=== PATIENT | male | born 1950 | race Caucasian/White ===

== ENCOUNTER 2017-12-30 11:53 | Outpatient (RCR) | payer MEDICARE ==
[~2017-12-30] VITALS: Ht 168.9 cm; Wt 90.1 kg
[~2017-12-30 11:53] MED LIST: AMLO-104 PO; BIS10S PR; DIA5 PO; DOC100 PO; ENO40I SQ; FLAX100042 PO; GUALA600 PO; HYDR1AMP IJ; MOM PO; MULT1CAP41 PO; OXY10 PO; OXYC-689 PO; OXYC-944 PO; OXYC30TA3 PO; OXYIR PO; PEN250 PO; PRE5 PO; PRED5TAB37 PO; RANI150C14 PO; TACR1CAP15 PO; TACR5CAP13 PO; TUM500 PO; VANC1PLA10 IVPB; VITA-365 PO; VITA100C13 PO; WARF-12 PO; WARF10TA29 PO; ZOL5 PO; [UNRECOGNIZED DRUG - CODE] PO
[2017-12-30 12:01] VITALS: BP 153/95
[2017-12-30 13:00] LABS: PLATELET COUNT, AUTOMATED 268 K/uL (150-450)
--- NOTE | 2017-12-31 20:42 | ONCOLOGY CONSULTATION ---
EVENT DATE: December 30, 2017 CHIEF COMPLAINT REASON FOR VISIT Mr. Marte is a 67-year-old gentleman, with a history of hepatitis C status post liver transplantation, that presents with erythrocytosis. HISTORY OF PRESENT ILLNESS Mr. Marte presents for initial consultation. He has a history of liver transplantation many years ago due to hepatitis C. He believes he contracted this virus from a blood transfusion in the or . He had the transplant and then subsequently it was re-infected with hepatitis C, likely from disease that was present elsewhere in his body. He has received Harvoni and by report he is in complete remission thankfully. Review of his labs over the last year, however, does show a significantly elevated hematocrit, with no other major findings on his CBC. This does raise a concern for polycythemia vera or secondary erythrocytosis. He is a smoker and could have more significant lung disease living in altitude that is leading to this worsening of his erythrocytosis. Polycythemia vera is on the differential diagnosis as well. The patient is overall doing okay. He does note fatigue. He recently had his teeth pulled. No history of blood clots or heart attack thankfully. PAST MEDICAL/SURGICAL HISTORY Includes, but is not limited to: 1. Hepatitis C. 2. Liver transplantation. 3. Erythrocytosis. SOCIAL HISTORY Patient has presented by himself. FAMILY HISTORY Noncontributory. MEDICATIONS He did not bring his medication list and does not recall all of his medications , so it is not up to date in our system at this time. REVIEW OF SYSTEMS CONSTITUTIONAL: No fevers, chills, weight change. HEENT: No major headache, vision changes, hearing changes. CARDIOVASCULAR: No chest pain, dyspnea on exertion or edema. No history of heart attack. RESPIRATORY: No shortness of breath, wheeze, cough. GASTROINTESTINAL: No nausea, vomiting. GENITOURINARY: No dysuria or hematuria. MUSCULOSKELETAL: No significant weakness or joint pain. PSYCHIATRIC: No anxiety or depression. ENDOCRINE: No heat or cold intolerance. The remainder of the 14-point review of systems is otherwise negative. PHYSICAL EXAMINATION VITAL SIGNS: Blood pressure 153/95, pulse 99, respiratory rate 16, temperature 97.7 Fahrenheit, oxygen saturation 92% on room air. Height 66.5 inches, weight 90.1 kg. Pain 0/10, fatigue 0/10. GENERAL: In stable condition, resting comfortably in the chair. SKIN: Mild facial plethora. HEENT: Poor dentition. CARDIOVASCULAR: Borderline tachycardia. RESPIRATORY: No respiratory distress. ABDOMEN: Soft, nontender with no organomegaly. He does have a surgical scar. I do palpate his liver edge, but it is nontender. EXTREMITIES: No clubbing, cyanosis or edema. SKIN: No concerning rashes. Remainder of physical exam unremarkable. IMPRESSION AND PLAN Mr. Marte is a pleasant 67-year-old liver transplant recipient, with a history of hepatitis C, currently in remission after Harvoni, that presents with the followin. Erythrocytosis. This could be both primary polycythemia vera or secondary erythrocytosis. We plan to check the labs to rule this out. Regardless, he would benefit from a phlebotomy to reduce his hematocrit below 50%. We will arrange for this today. We will check iron studies given his liver history. I reviewed his ultrasound, which does show either fatty liver versus an infiltrative liver from high iron versus or both. Thankfully, no signs of liver rejection. 2. Tobacco use with erythrocytosis raises concern for emphysema or chronic obstructive pulmonary disease. Recommend follow-up with his primary care provider and perhaps consideration of pulmonary function tests periodically. 3. We will get the above studies arranged for phlebotomy and then see him in followup. If he does not have polycythemia vera I think he will need phlebotomies a couple of times a year. If he does have polycythemia it will likely increase the frequency. I answered all of his questions today. Billing: New patient level 3. Total time 30 minutes, counseling time 20. MTDD
== END 2018-03-27 ==
LOC: ONC 11:53
PROVIDERS: ATTEND Internal Medicine Medical Oncology
DX: D75.1 Secondary polycythemia (principal); B19.20 Unspecified viral hepatitis C without hepatic coma; F17.210 Nicotine dependence, cigarettes, uncomplicated
CPT/HCPCS: 36415; 81270; 81403; 82728; 83540; 83550; 83615; 85025; 99195; G0463; 82040; 82247; 82310; 82374; 82435; 82565; 82947; 84075; 84132; 84155; 84295; 84450; 84460; 84520; 99202

== ENCOUNTER 2018-04-07 13:00 | Outpatient (RCR) | payer MEDICARE ==
[2018-04-07 13:10] VITALS: BP 155/91
--- NOTE | 2018-04-08 18:53 | ONCOLOGY FOLLOW UP NOTE ---
EVENT DATE: April 07, 2018 CHIEF COMPLAINT/REASON FOR VISIT Mr. Marte is a pleasant 67-year-old gentleman with a history of hepatitis C status post liver transplantation that presented with secondary erythrocytosis. HISTORY OF PRESENT ILLNESS Mr. Marte returns. He has a history of liver transplantation many years ago for hepatitis C, which he believes he contracted from a blood transfusion in the . He than had transplant and subsequently was re-infected with hepatitis C likely from disease that was present dormant elsewhere in his body. He has since received Harvoni and is in complete remission today. That was a very difficult treatment for him. He has a significantly elevated hematocrit and he had one phlebotomy in December 2017. He felt much better after this, but that lasted less than a week. I think that the reason for this is that he still has erythrocytosis and we will need to treat him more frequently. We will arrange for a phlebotomy today, if his labs which are pending today return with hematocrit greater than 50. I anticipate they will be based on his symptoms. Overall he doing okay. No new issues. PAST MEDICAL/SURGICAL HISTORY Includes, but is not limited to: 1. Hepatitis C. 2. Liver transplantation. 3. Erythrocytosis. SOCIAL HISTORY Patient has presented by himself. FAMILY HISTORY Noncontributory. REVIEW OF SYSTEMS CONSTITUTIONAL: No fevers, chills, weight change. HEENT: No major headache, vision changes, hearing changes. CARDIOVASCULAR: No chest pain, dyspnea on exertion or edema. No history of heart attack. RESPIRATORY: No shortness of breath, wheeze, cough. GASTROINTESTINAL: No nausea, vomiting. GENITOURINARY: No dysuria or hematuria. MUSCULOSKELETAL: No significant weakness or joint pain. PSYCHIATRIC: No anxiety or depression. ENDOCRINE: No heat or cold intolerance. The remainder of the 14-point review of systems is otherwise negative. PHYSICAL EXAMINATION VITAL SIGNS: Blood pressure 155/91, pulse 108, respiratory rate 16, temperature 98.6 Fahrenheit, oxygen saturation 92% on room air. Weight 93.8 kg. Pain 0/10, fatigue 0/10. GENERAL: In stable condition, resting comfortably in the chair. HEENT: Normocephalic, atraumatic. EXTREMITIES: No clubbing, cyanosis or edema. PSYCHIATRIC: Normal mood and affect. Remainder of physical exam deferred today due to amount of time spent in counseling and coordination of care. IMPRESSION AND PLAN Mr. Marte is a pleasant 67-year-old liver transplant recipient, with a history of hepatitis C, currently in remission with Harvtalia here for followup. 1. Secondary erythrocytosis. His JAK2 and Exon 11 studies were negative. We will send CLAR with his next lab draw. I think it is important to control his hematocrit for multiple reasons including his liver transplant, as well as to reduce the risk of heart attack and stroke. 2. Tobacco use which raises concern for emphysema and chronic obstructive pulmonary disease. Followup with his PCP. 3. We will likely need periodic phlebotomies every few months. We will get them if his hematocrit is ever 50% or higher. I answered all of his questions today. Billing: Return visit level 3. Total time 20 minutes, counseling time 15. MTDD
== END 2018-07-02 ==
LOC: ONC 13:00
PROVIDERS: ATTEND Internal Medicine Medical Oncology
DX: D75.1 Secondary polycythemia (principal); B19.20 Unspecified viral hepatitis C without hepatic coma; F17.210 Nicotine dependence, cigarettes, uncomplicated; Z94.4 Liver transplant status
CPT/HCPCS: 99212

== ENCOUNTER → 2018-06-11 | Outpatient (CLI) | payer MEDICARE ==
--- NOTE | 2018-06-11 15:06 | EKG ---
FACILITY: [facility] - [place] PATIENT NAME: GENARO FAN : [id number] MR: [id number] V: [id number] EXAM DATE: ORDERING PHYSICIAN: IGNACIA CROSS TECHNOLOGIST: ERIC Test Reason : TACHCARDIA Blood Pressure : / mmHG Vent. Rate : 081 BPM Atrial Rate : 081 BPM P-R Int : 240 ms QRS Dur : 104 ms QT Int : 382 ms P-R-T Axes : 059 093 -60 degrees QTc Int : 443 ms Sinus rhythm with 1st degree AV block with premature atrial complexes Rightward axis Possible Anterior infarct , age undetermined ST and T wave abnormality, consider inferolateral ischemia Abnormal ECG No previous ECGs available Referred By: AMERICA Confirmed By:
--- NOTE | 2018-06-11 15:15 | RADIOLOGY IMAGING REPORT ---
FACILITY: [facility] PATIENT NAME: Capo Marte : 1950 MR: [id number] V: [id number] EXAM DATE: ORDERING PHYSICIAN: IGNACIA CROSS TECHNOLOGIST: Location: [facility] Patient: Capo Marte : 1950 Visit/Account:[id number] Date of Sevice: 06/11/2018 Chest 2 views: HISTORY: Patient states right lung not fully expanding. COMPARISON: 04/19/2015 FINDINGS: Frontal and lateral chest: Cardiomediastinal silhouette is within normal limits. There is no focal infiltrate or evidence of significant atelectasis. There is no pleural effusion or pneumoth orax. Pulmonary vasculature is normal. Scarring is present in the left mid to lower lung adjacent to old rib fractures, appearance is unchan ged compared to the prior study. Interstitial markings are mildly prominent also stable. Atherosclerotic changes are present in the aorta. Minimal degenerative changes present in the thoracic spine. IMPRESSION: Chronic changes in the lungs, stable. There is no evidence of acute cardiopulmonary abnormality. Report Dictated By: Rima Capps MD at 06/11/2018 3:09 PM Report E-Signed By: Rima Capps MD at 06/11/2018 3:11 PM WSN:[email or web address]
== END ==
LOC: RAD 14:02
PROVIDERS: ATTEND Family Medicine
DX: I70.0 Atherosclerosis of aorta (principal); R91.8 Other nonspecific abnormal finding of lung field; R94.31 Abnormal electrocardiogram [ECG] [EKG]
CPT/HCPCS: 71046; 93005

== ENCOUNTER → 2018-06-27 | Outpatient (CLI) | payer MEDICARE ==
--- NOTE | 2018-06-30 14:33 | RT STRESS TEST REPORT ---
FACILITY: [facility] - [place] PATIENT NAME: GENARO FAN : [id number] MR: [id number] V: [id number] EXAM DATE: ORDERING PHYSICIAN: SUSU MORAN TECHNOLOGIST: Amilcar Acquisition Time: 2018-06-27 10:20:17 Total Exercise Time: 00:03:08 Test Indications: Tachy Medications: losartan tacholimus? Protocol: YIN Max HR: 130 BPM 86% of Pred: 150 BPM Max BP: 156/079 mmHG Max Work Load: 4.6 METS SEE STRESS ECHO REPORT. Confirmed by ROXY ATKINSON ([id number]), editor news LETY IRELAND ([id number]) on 06/30/2018 2:32:21 PM Referred By: Susu Moran Overread By: ROXY ATKINSON
== END ==
LOC: RESP 01:58
PROVIDERS: ATTEND Family Medicine
DX: I49.3 Ventricular premature depolarization (principal)
CPT/HCPCS: 93017; 93325; 93350

== ENCOUNTER 2018-07-07 10:25 | Outpatient (RCR) | payer MEDICARE ==
[2018-07-07 10:40] VITALS: BP 133/85
--- NOTE | 2018-07-08 11:28 | ONCOLOGY FOLLOW UP NOTE ---
EVENT DATE: July 07, 2018 CHIEF COMPLAINT/REASON FOR VISIT Mr. Marte is a pleasant 68-year-old gentleman with a history of hepatitis C status post liver transplantation that I am following for secondary erythrocytosis. HISTORY OF PRESENT ILLNESS Mr. Marte returns. He has a history of liver transplantation many years ago for hep C, which he believes he contracted from a blood transfusion in the . He then had transplant and subsequently was reinfected with hep C and treated with Harvoni. He is in complete remission again, although he did not tolerate Harvoni very well. He has a significantly elevated hematocrit and is getting phlebotomy every three months to keep his hematocrit less than 50. His testing for polycythemia vera was negative including JAK2 and Exon 11 mutation. We did not get a CALR test. Overall he is doing well. His therapy would no change, and we will continue phlebotomies every three months. PAST MEDICAL/SURGICAL HISTORY Includes, but is not limited to: 1. Hepatitis C. 2. Liver transplantation. 3. Erythrocytosis. SOCIAL HISTORY Patient has presented by himself. FAMILY HISTORY Noncontributory. REVIEW OF SYSTEMS CONSTITUTIONAL: No fevers, chills, weight change. HEENT: No major headache, vision changes, hearing changes. CARDIOVASCULAR: No chest pain, dyspnea on exertion or edema. No history of heart attack. RESPIRATORY: No shortness of breath, wheeze, cough. GASTROINTESTINAL: No nausea, vomiting. GENITOURINARY: No dysuria or hematuria. MUSCULOSKELETAL: No significant weakness or joint pain. PSYCHIATRIC: No anxiety or depression. ENDOCRINE: No heat or cold intolerance. The remainder of the 14-point review of systems is otherwise negative. PHYSICAL EXAMINATION VITAL SIGNS: Blood pressure 133/85, pulse 74, respiratory rate 16, temperature 97.5 Fahrenheit, oxygen saturation 94% on room air. Weight 901. kg. Pain 2/10 , fatigue 0/10. GENERAL: Stable condition, resting comfortably in the chair. HEENT: Normocephalic, atraumatic. CARDIOVASCULAR: Regular rate and rhythm. LUNGS: Clear. EXTREMITIES: No clubbing, cyanosis or edema. PSYCHIATRIC: Normal mood and affect. Remainder of physical exam otherwise unremarkable. IMPRESSION AND PLAN Mr. Marte is a pleasant 68-year-old liver transplant recipient, with a history of hepatitis C, currently in remission after Harvoni here for followup. 1. Secondary erythrocytosis. Plan to get phlebotomies every three months. 2. Tobacco use history with concern for emphysema/chronic obstructive pulmonary disease. Followup with primary care provider. 3. History of liver transplantation and hepatitis C under control. I answered all of his questions today. Billing: Return visit level 3. Total time 20 minutes, counseling time 15. MTDD
== END 2018-07-25 11:04 | disposition home or self-care (01) ==
LOC: ONC 10:25
PROVIDERS: ATTEND Internal Medicine
DX: D75.1 Secondary polycythemia (principal); B19.20 Unspecified viral hepatitis C without hepatic coma; F17.210 Nicotine dependence, cigarettes, uncomplicated; Z94.4 Liver transplant status
CPT/HCPCS: 99212

== ENCOUNTER 2019-01-12 14:42 | Outpatient (RCR) | payer MEDICARE | END 2019-01-13 12:02 | disposition home or self-care (01) | LOC: ONC 14:42 | PROVIDERS: ATTEND Internal Medicine | DX: D58.2 Other hemoglobinopathies (principal); D75.1 Secondary polycythemia ==

== ENCOUNTER 2019-01-23 13:16 | Outpatient (RCR) | payer MEDICARE | END 2019-01-26 12:15 | disposition home or self-care (01) | LOC: ONC 13:16 | PROVIDERS: ATTEND Internal Medicine | DX: D58.2 Other hemoglobinopathies (principal); D75.1 Secondary polycythemia ==

== ENCOUNTER → 2019-01-28 | Outpatient (CLI) | payer MEDICARE ==
[~2019-01-28] MED LIST changes: +IOPAMIDOL 76% 100 ML INFUS BTL 100 ML ONE
--- NOTE | 2019-01-28 15:11 | RADIOLOGY IMAGING REPORT ---
FACILITY: [facility] PATIENT NAME: Capo Marte : 1950 MR: [id number] V: [id number] EXAM DATE: ORDERING PHYSICIAN: IGNACIA CROSS TECHNOLOGIST: Location: [facility] Patient: Capo Marte : 1950 Visit/Account:[id number] Date of Sevice: 01/28/2019 CT neck with and without contrast Comparison: None Additional pertinent history: Right tonsillar enlargement with right cervical lymphadenopathy. Hist ory of tobacco use TECHNIQUE: Multiple axial images were obtained from the mid portion of the brain through the superio r mediastinum with and without IV contrast. Coronal and sagittal reformatted images were obtained of f the axial source data. One of the following dose optimization techniques was utilized in the perfo rmance of this exam: Automated exposure control; adjustment of the mA and/or kV according to the odalys ent's size; or use of an iterative reconstruction technique. Specific details can be referenced in the facility's radiology CT exam operational policy. CONTRAST: 75 mL of Isovue-370 FINDINGS: Visualized portions of the brain parenchyma:Negative Parotid glands/submandibular glands/thyroid: Partial fatty replacement of the right parotid gland wi thout a focal lesion noted. The submandibular glands and thyroid gland have a normal appearance. Th e left parotid gland has a normal appearance. Orbits: Negative Paranasal sinuses: Negative Parapharyngeal spaces: Negative Nasopharynx/oropharynx/hypopharynx: Negative Tonsillar pillars: Negative, specifically no evidence of a right tonsillar mass noted on today's exa m. Oral tongue/tongue base: Negative True and false cords: Negative Lymph node assessment:Negative Surrounding soft tissues: Negative Vasculature: Calcified and noncalcified atherosclerotic plaque involving the cervical internal carot id arteries with findings concerning for a rather high-grade stenoses bilaterally at the origins of t he internal carotid arteries. Lung apices: Mild background emphysematous changes involving both lung apices. Osseous structures: Spondylitic change involving the cervical spine. IMPRESSION: 1. No acute process involving the neck. 2. Specifically no evidence of right tonsillar mass or right sided cervical lymphadenopathy. Report Dictated By: Chidi Monte MD at 01/28/2019 2:55 PM Report E-Signed By: Chidi Monte MD at 01/28/2019 3:05 PM WSN:[id number]
== END ==
LOC: CT 01:27
PROVIDERS: ATTEND Family Medicine
DX: M47.892 Other spondylosis, cervical region (principal); I65.23 Occlusion and stenosis of bilateral carotid arteries; R91.8 Other nonspecific abnormal finding of lung field
CPT/HCPCS: 70492; Q9967

== ENCOUNTER → 2019-02-11 | Outpatient (CLI) | payer MEDICARE ==
[~2019-02-11] MED LIST changes: -IOPAMIDOL 76% 100 ML INFUS BTL 100 ML ONE
--- NOTE | 2019-02-11 17:10 | RADIOLOGY IMAGING REPORT ---
FACILITY: [facility] - [place] PATIENT NAME: Capo Marte : 1950 MR: [id number] V: [id number] EXAM DATE: ORDERING PHYSICIAN: IGNACIA CROSS TECHNOLOGIST: Location: Patient: Capo Marte : 1950 Visit/Account:[id number] Date of Sevice: 02/11/2019 CAROTID HISTORY: Carotid stenosis, lightheadedness COMPARISON: February 15, 2014 FINDINGS: Grayscale, duplex and color Doppler interrogation of the extracranial carotid and vertebral arteries was performed bilateral. On the right, peak systolic velocities within the common and internal carotid arteries are 127 and 14 1 cm/sec respectively. There is a small to moderate amount of plaque at the right carotid bulb and a moderate amount of plaque in the proximal right internal carotid artery. Antegrade flow within the common, internal and external carotid arteries as well as vertebral artery. ICA/CCA ratio 3.41. On the left, peak systolic velocities within the common and internal carotid arteries are 67 and 134 cm/sec respectively. Is intimal thickening throughout the left common carotid artery and a small syeda unt of hard and soft plaque left carotid bulb. There is a moderate amount of plaque in the proximal left internal carotid artery. Antegrade flow within the common, internal and external carotid arteri es as well as vertebral artery. ICA/CCA ratio 2.7. IMPRESSION: There is a small to moderate amount plaque right carotid bulb and a moderate amount of plaque in the proximal right internal carotid artery producing a peak systolic velocity of 144 cm/s. This falls wi thin the 50-69% stenosis category range There is intimal thickening throughout the left common carotid artery and a small amount of hard and soft plaque left carotid bulb and a moderate amount of plaque in the proximal left internal carotid a rtery producing a elevated peak systolic velocity 134 cm/s. This also falls within the 50-69% stenos is category range Velocity criteria are extrapolated from diameter data as defined by the Society of Radiologists in Ul trasound Consensus Conference Radiology 2003; 229;340-346 Report Dictated By: Amanda Powell MD at 02/11/2019 5:01 PM Report E-Signed By: Amanda Powell MD at 02/11/2019 5:05 PM WSN:MARIA LUISA
== END ==
LOC: US 02-09 00:14
PROVIDERS: ATTEND Family Medicine
DX: I65.23 Occlusion and stenosis of bilateral carotid arteries (principal)
CPT/HCPCS: 93880

== ENCOUNTER → 2019-02-19 | Outpatient (CLI) | payer MEDICARE ==
[~2019-02-19] MED LIST changes: +LOSA25TA57 PO; +METF-450 PO
--- NOTE | 2019-02-19 14:05 | EKG ---
FACILITY: [facility] PATIENT NAME: GENARO FAN : [id number] MR: [id number] V: [id number] EXAM DATE: ORDERING PHYSICIAN: MARGUERITE OLIVAS TECHNOLOGIST: CHRIS Shah Reason : EKG Blood Pressure : / mmHG Vent. Rate : 085 BPM Atrial Rate : 085 BPM P-R Int : 234 ms QRS Dur : 110 ms QT Int : 376 ms P-R-T Axes : 048 -14 237 degrees QTc Int : 447 ms Sinus rhythm with 1st degree AV block with occasional premature ventricular complexes T wave abnormality, consider inferolateral ischemia Abnormal ECG When compared with ECG of 11-JUN-2018 14:44, premature ventricular complexes are now present premature atrial complexes are no longer present Questionable change in QRS axis T wave inversion less evident in Inferior leads Referred By: BRENDON Confirmed By:
== END ==
LOC: LAB 13:59
PROVIDERS: ATTEND Surgery
DX: Z02.9 Encounter for administrative examinations, unspecified (principal)

== ENCOUNTER 2019-02-23 12:20 | Outpatient (RCR) | payer MEDICARE ==
[2019-02-23 13:00] VITALS: BP 120/78
--- NOTE | 2019-02-24 03:53 | ONCOLOGY FOLLOW UP NOTE ---
EVENT DATE: February 23, 2019 CHIEF COMPLAINT/REASON FOR VISIT Mr. Marte is a pleasant 68-year-old gentleman with a history of hepatitis C, status post liver transplantation, whom I am following for secondary erythrocytosis. HISTORY OF PRESENT ILLNESS Mr. Marte returns. He has a history of liver transplantation approximately 20 years ago for hepatitis C, which he believes he contracted from a blood transfusion in the . He then had transplant and was subsequently reinfected with hepatitis C and treated with Harvoni. He is in complete remission again, although he did not tolerate Harvoni very well. He has an elevated hematocrit, and we are doing phlebotomies every three months. His testing for polycythemia vera was negative, including JAK2 and exon 11. We did not check a CALR mutation test. Overall, he is doing well, although he missed his last phlebotomy and is due for it now. We will renew his orders. His platelet count has been low, and he is due for a colonoscopy due to an abnormal Hemoccult card test. His platelet count has been approximately 70, which I believe is related to his prior liver issues. That said, it has been elevated before, so we will repeat this study and check a peripheral smear to rule out clumping. If his platelet count is less than 75, we will arrange for a transfusion, then move forward with the colonoscopy, which is his most pressing issue. We will need to follow his platelets. PAST MEDICAL/SURGICAL HISTORY Includes, but is not limited to: 1. Hepatitis C. 2. Liver transplantation. 3. Erythrocytosis. SOCIAL HISTORY Patient has presented by himself. FAMILY HISTORY Noncontributory. REVIEW OF SYSTEMS CONSTITUTIONAL: No fevers, chills, weight change. HEENT: No major headache, vision changes, hearing changes. CARDIOVASCULAR: No chest pain, dyspnea on exertion or edema. No history of heart attack. RESPIRATORY: No shortness of breath, wheeze, cough. GASTROINTESTINAL: No nausea, vomiting. GENITOURINARY: No dysuria or hematuria. MUSCULOSKELETAL: No significant weakness or joint pain. PSYCHIATRIC: No anxiety or depression. ENDOCRINE: No heat or cold intolerance. SKIN: No concerning findings or rashes. HEMATOLOGIC: No bruising or bleeding. He had a positive Hemoccult card, but denies any hematemesis or melena. The remainder of the 14-point review of systems is otherwise negative. PHYSICAL EXAMINATION VITAL SIGNS: Blood pressure 120/78, pulse 83, respiratory rate 16, temperature 97.6 Fahrenheit, oxygen saturation 93% on room air. Weight 102 kg. Pain 0/10, fatigue 0/10. GENERAL: Stable condition, resting comfortably in the chair. SKIN: No concerning lesions or rashes. CARDIOVASCULAR: Regular rate and rhythm. LUNGS: Clear. ABDOMEN: Soft, nontender. He does have the transplant. EXTREMITIES: No clubbing, cyanosis or edema. Remainder of exam unremarkable. IMPRESSION/REPORT/PLAN Mr. Marte is a pleasant 68-year-old transplant recipient with a history of hepatitis C, currently in remission after Harvtalia, here for followup. 1. Secondary erythrocytosis. Plan to get phlebotomies approximately every three months, and we will rearrange for this. 2. Tobacco use history with concern for emphysema/chronic obstructive pulmonary disease. 3. History of liver transplantation and hepatitis C, under control. 4. Thrombocytopenia. Unclear etiology. His liver numbers look okay, so I do not know if I can blame the liver; however, that is the most likely etiology. Plan to repeat the testing along with peripheral smear to make sure we do not see any platelet clumping. If his platelets are less than 75, we will arrange for a transfusion prior to colonoscopy. We will follow this closely. He will see us back later in 2019. Answered all of his questions. BILLING Return visit level 4. Total time 30 minutes, counseling time 20. MTDD
[2019-03-23] MEDS ORDERED: LOSA50TA80 PO (11:27)
[2019-03-23] MEDS ORDERED: METF-450 PO (11:27)
== END 2019-04-03 08:57 | disposition home or self-care (01) ==
LOC: ONC 12:20
PROVIDERS: ATTEND Internal Medicine
DX: D75.1 Secondary polycythemia (principal); B19.20 Unspecified viral hepatitis C without hepatic coma; F17.210 Nicotine dependence, cigarettes, uncomplicated; Z94.4 Liver transplant status; D69.6 Thrombocytopenia, unspecified
CPT/HCPCS: 99212

== ENCOUNTER 2019-03-27 00:11 | Observation (INO) | payer MEDICARE, OTHER ==
[~2019-03-27] VITALS: Ht 172.7 cm; Wt 99.1 kg
[2019-03-27] VITALS (11 sets, daily range): BP systolic 91–164; BP diastolic 57–100
[~2019-03-27 00:11] MED LIST changes: +LOSA50TA80 PO
[2019-03-27] MEDS ORDERED: PROPOFOL EMUL(*) 10MG/ML 20 ML 40 ML ONE (08:40)
[2019-03-27] MEDS ORDERED: LIDOCAINE MPF 1% 5 ML VIAL ONE (08:40)
[2019-03-27 09:59] LABS: INR 0.96
[2019-03-27] MEDS ORDERED: LIDOCAINE/SOD BICARB 8.4% SYR ID ONE (10:05)
[2019-03-27] MEDS ORDERED: NORMOSOL R SOLN(*) 1000 ML BAG 1,000 ML IV PRN (10:05)
[2019-03-27] MEDS ORDERED: IOPAMIDOL 76% 150 ML INFUS BTL 150 ML ONE (12:42)
--- NOTE | 2019-03-27 14:53 | NUR ---
1115- PT. RECEIVED FROM THE OR VIA STRETCHER WITH THE SIDERAILS UP. SBAR RECEIVED FROM ANASTASIA REARDON AND DR. MORA. SEE ADMISSION ASSESSMENT. 1130- PT. AWAKE 1147- PT. RETURNED TO ROOM AIR. 1210- DR. OLIVAS AT THE BEDSIDE. 1230- SBAR GIVEN TO MARCO REARDON. 1300- SBAR RECEIVED FROM MARCO REARDON. AND PT. TAKEN TO RADIOLOGY FOR CT SCAN IN WHEELCHAIR. 1316- PT. BACK FROM RADIOLOGY. 1320- PT. TAKEN TO MED/SURG IN WHEELCHAIR. SBAR GIVEN TO ANAMIKA REARDON. SEE DISCHARGE ASSESSMENT.
--- NOTE | 2019-03-27 16:49 | Short(Outpt) Discharge Summary ---
Discharge Summary Reason for Hosp/Final Diag: (1) Positive fecal occult blood test Hospital Course & Plan: pt presented for colonoscopy. he has a mass in right colon. path pending. he completed ct scans and labs for cancer workup. he did not have a ride home. discharge in am. Departure Discharge to: Home Discharge Instructions Home Meds Reported Medications Losartan Potassium (LOSARTAN POTASSIUM) 50 Mg Tablet, 50 MG PO QDAY 03/23/19 Metformin Hcl (METFORMIN HCL) 500 Mg Tablet, 1 TAB PO QDAY, TAB 03/23/19 Discontinued Reported Medications Metformin Hcl (METFORMIN HCL) Unknown Strength Tablet, PO BID, TAB 02/19/19 Losartan Potassium (LOSARTAN POTASSIUM) Unknown Strength Tablet, PO QDAY 02/19/19 Tacrolimus Anhydrous (Prograf) 1 Mg Capsule, 1 MG PO BID, 0 Refills 12/21/08 Guaifenesin (Guaifenesin) 600 Mg Tabcr, 600 MG PO BID PRN for CONGESTION, 0 Refills 12/21/08 Diet: Regular Activity: As Tolerated Special Instructions: we will call you with biopsy results. MARGUERITE OLIVAS March 27, 2019 16:49
--- NOTE | 2019-03-27 17:44 | RADIOLOGY IMAGING REPORT ---
[place] [facility] [place] NAME: Capo Marte : 1950 MR: [id number] V: [id number] EXAM DATE: ORDERING PHYSICIAN: MARGUERITE OLIVAS TECHNOLOGIST: Location: [facility] - [place] Patient: Capo Marte : 1950 Visit/Account:[id number] Date of Sevice: 03/27/2019 CT CHEST ABDOMEN PELVIS W/CON HISTORY: Colon mass, history of liver transplant TECHNIQUE: CT chest, abdomen and pelvis with intravenous contrast. Contiguous helical images was per formed from the lung apices to the symphysis pubis. One of the following dose optimization techniques was utilized in the performance of this exam: Autom ated exposure control; adjustment of the mA and/or kV according to the patient's size; or use of an i terative reconstruction technique. Specific details can be referenced in the facility's radiology C T exam operational policy. CONTRAST: 75 cc of Isovue-370 COMPARISON: None. FINDINGS: CHEST: Heart/vessels: There is significant atherosclerotic calcification of the thoracic aorta. Plaque at t he origin of the right brachycephalic artery causes approximately 60-70% focal narrowing at the origi n. Great vessels are well-opacified. Mediastinum: Negative. Lymph nodes: Small subcentimeter mediastinal lymph nodes are noted not enlarged by size criteria. Lungs/pleura: Paraseptal emphysema at the lung apices is noted. 8 x 5 mm nodule right lower lobe is noted (4/61) Bones/soft tissues: Degenerative changes are noted. ABDOMEN/PELVIS: Hepatobiliary: Patient reportedly has had a liver transplantation. No focal liver lesions are seen. Gallbladder is absent. Spleen: Negative. Adrenals: Negative. Kidneys/: Negative. Pancreas: Negative. GI: There is extensive colonic diverticulosis. There appears to be a subtle circumferential mass in the mid transverse colon extending for 5 cm in length. Please correlate with recent colonoscopy findi ngs. Small subcentimeter mesenteric lymph nodes are noted not obviously pathologic. Vessels/spaces/nodes: Extensive atherosclerotic calcification of the aorta and iliac vessels is note d. Infrarenal abdominal aorta is mildly aneurysmal measures 3.2 cm. 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 Bones/soft tissues: Patient has a left hip arthroplasty. Sclerosis of the right femoral head could i ndicate avascular necrosis without articular collapse. There is bilateral L5 spondylolysis with 6 mm of anterolisthesis of L5 with respect S1. IMPRESSION: 1. Reported history is colon mass. There is circumferential thickening of the mid transverse colon o joan distance of nearly 5 cm presumably the known neoplasm. No evidence for bowel obstruction. Please correlate with colonoscopy results. 2. No definitive metastatic disease. Specifically no liver lesions are seen. 3. Patient reportedly has had prior hepatic transplantation. The liver is grossly unremarkable. 4. 8 x 5 mm nodule right lower lobe which warrants follow-up. 5. Numerous other chronic findings detailed above. Report Dictated By: New Matthews MD at 03/27/2019 5:27 PM Report E-Signed By: New Matthews MD at 03/27/2019 5:40 PM WSN:[id number]
[2019-03-28 03:38] VITALS: BP 138/89
[2019-03-28 07:21] VITALS: BP 145/88
--- NOTE | 2019-03-28 08:21 | NUR ---
Refused metformin as he was told after his CT with contrast not to take it for 3 days
[2019-03-28] MEDS ORDERED: metFORMIN HCL 500 MG TAB PO SCH (09:00)
[2019-03-28] MEDS ORDERED: LOSARTAN POTASSIUM 50 MG TAB PO SCH (09:00)
== END 2019-03-28 10:30 | disposition home or self-care (01) ==
LOC: OR 00:11 → MED 13:30
PROVIDERS: ADMIT Surgery; ATTEND Surgery
DX: K63.5 Polyp of colon (principal); C18.2 Malignant neoplasm of ascending colon; K57.30 Diverticulosis of large intestine without perforation or abscess without bleeding; E11.9 Type 2 diabetes mellitus without complications
CPT/HCPCS: 00811; 36415; 36416; 45385; 71260; 74177; 82378; 82948; 85610; 88305; A9270; G0378; J2001; J2704; Q9967

== ENCOUNTER 2019-04-21 01:27 | Inpatient (IN) | payer MEDICARE ==
[~2019-04-21] VITALS: Ht 172.7 cm; Wt 98.4 kg
[2019-04-21] VITALS (12 sets, daily range): BP systolic 95–144; BP diastolic 74–97
[2019-04-21] MEDS ORDERED: fentaNYL CITR 250 MCG/5 ML AMP ONE (09:14)
[2019-04-21] MEDS ORDERED: ONDANSETRON 4 MG/2 ML VIAL ONE (09:15)
[2019-04-21] MEDS ORDERED: LIDOCAINE MPF 1% 5 ML VIAL ONE (09:15)
[2019-04-21] MEDS ORDERED: PROPOFOL EMUL(*) 10MG/ML 20 ML 20 ML ONE (09:15)
[2019-04-21] MEDS ORDERED: DEXAMETHASONE SOD 4 MG/ML VIAL ONE (09:15)
[2019-04-21] MEDS ORDERED: KETAMINE HCL 200 MG/20 ML MDV ONE (09:19)
[2019-04-21] MEDS ORDERED: SUGAMMADEX SOD 200 MG/2 ML SDV ONE (09:22)
[2019-04-21] MEDS ORDERED: LEVOFLOXACIN/D5W 750 MG/150 ML 150 ML IVPB ONE (11:20)
[2019-04-21] MEDS ORDERED: metroNIDAZOLE* 500MG/100ML BAG 100 ML IVPB ONE (11:20)
[2019-04-21] MEDS ORDERED: LIDOCAINE/SOD BICARB 8.4% SYR ID ONE (11:30)
[2019-04-21] MEDS ORDERED: NORMOSOL R SOLN(*) 1000 ML BAG 1,000 ML IV PRN (11:30)
[2019-04-21] MEDS ORDERED: FAMOTIDINE 20 MG TAB PO ONE (11:30)
[2019-04-21] MEDS ORDERED: MIDAZOLAM 2 MG/2 ML VIAL IVP PRN (11:30)
[2019-04-21] MEDS ORDERED: BUPIVACAINE/EPI 0.5% 50ML VIAL INFIL ONE (11:49)
[2019-04-21] MEDS ORDERED: LABETALOL HCL 100 MG/20ML VIAL ONE (13:05)
[2019-04-21] MEDS ORDERED: ESMOLOL 10 MG/ML 10ML SDV ONE (14:31)
[2019-04-21] MEDS ORDERED: fentaNYL CITR 100 MCG/2 ML AMP ONE (14:43)
[2019-04-21] MEDS ORDERED: HYDROmorphone HCL 2 MG/ML SDV ONE (15:15)
[2019-04-21] MEDS ORDERED: HYDROmorphone HCL 2 MG/ML SDV IVP PRN (15:20)
[2019-04-21] MEDS ORDERED: PROMETHAZINE 25 MG/ML 1 ML AMP ONE (15:33)
--- NOTE | 2019-04-21 15:33 | Post Operative Progress Note ---
Post Operative Progress Note Date: April 21, 2019 Time: 15:32 Surgeon: dr. hilary ang Chemical Laboratory Tester: dr. anita hernandez Anesthesia: gen, local Pre-Op Diagnosis: colon ca Post-Op Diagnosis: same Procedure(s): laparoscopic extended right hemicolectomy Specimen Removed:(May be N/A): right colon Complications: none Estimated Blood Loss: minimal MARGUERITE ANG April 21, 2019 15:33
[2019-04-21] MEDS: KETOROLAC 30 MG/ML VIAL IVP SCH (17:34)
[2019-04-21] MEDS: NS(*) 0.9% 1000 ML BAG 1,000 ML IV SCH (17:35)
[2019-04-21] MEDS: APAP/HYDROCODONE 325/7.5 TAB PO PRN (19:36)
[2019-04-21] MEDS: GABAPENTIN 300 MG CAP PO SCH (21:13)
[2019-04-22] VITALS: BP 129/87
[2019-04-22] MEDS: KETOROLAC 30 MG/ML VIAL IVP SCH ×5 (00:53→23:18)
[2019-04-22] MEDS: APAP/HYDROCODONE 325/7.5 TAB PO PRN ×2 (02:48→22:19)
[2019-04-22] MEDS: NS(*) 0.9% 1000 ML BAG 1,000 ML IV SCH ×4 (02:48→23:19)
[2019-04-22 02:51] VITALS: BP 150/99
[2019-04-22 07:04] LABS: PLATELET COUNT, AUTOMATED 145 K/uL (150-450)
[2019-04-22 07:27] VITALS: BP 116/72
--- NOTE | 2019-04-22 08:02 | General Surgery Progress Note ---
Subjective Progress Notes Subjective doing well. + maroon bms x2. hungry. pain controlled. has been ambulating. Physical Exam Vital Signs Date Time Temp Pulse Resp B/P (MAP) Pulse Ox O2 Delivery O2 Flow Rate FiO2 04/22/19 07:27 97.7 63 20 116/72 (87) 95 Nasal Cannula 2.0 Intake and Output 04/22/19 07:00 Intake Total 4235 ml Output Total 525 ml Balance 3710 ml Intake Oral 1160 ml IV Total 3075 ml Output Urine Total 400 ml Estimated Blood Loss 125 ml # Voids 4 # Bowel Movements 2 General Appearance: No Acute Distress, Afebrile Cardiovascular: Other (reg rate) GI: Other (abd soft) Result Diagram: 04/22/19 0545 04/22/1945 Assessment and Plan Problems: (1) Colon cancer Assessment & Plan: 04/22/19: doing well. full liquid diet. ambulate. on lovenox for dvt proph. path pending. Exam Sepsis Risk: No Definite Risk MARGUERITE OLIVAS April 22, 2019 08:02
[2019-04-22] MEDS: GABAPENTIN 300 MG CAP PO SCH ×2 (08:15→20:31)
[2019-04-22] MEDS: ENOXAPARIN 40 MG/0.4ML SYR SC SCH (08:16)
--- NOTE | 2019-04-22 09:16 | OPERATIVE REPORT 1 ---
EVENT DATE: April 21, 2019 SURGEON: Capo Coker MD ANESTHESIOLOGIST: Myron Angeles MD ANESTHESIA: General and local. RANGE FEEDER: Oscar Rothman MD PREOPERATIVE DIAGNOSIS Colon cancer. POSTOPERATIVE DIAGNOSIS Colon cancer. PROCEDURE PERFORMED Laparoscopic extended right hemicolectomy. FLUIDS IV crystalloid. ESTIMATED BLOOD LOSS Minimal. SPECIMENS Extended right colon. COMPLICATIONS None. INDICATIONS This is a 68-year old male with a colon cancer in the proximal transverse colon found on colonoscopy. After appropriate workup, the risks and benefits of the procedure were explained and consent was signed. DESCRIPTION OF PROCEDURE Patient was taken to the operating room and placed in the supine position. General anesthesia was administered per the Anesthesia team. The patient was prepped and draped in normal sterile fashion. Local analgesia was injected into the dermis above the umbilicus and a small incision was made. The umbilical stump was grasped and elevated. Veress needle was attempted to be inserted but was unsuccessful and, therefore, I made a small incision below the left costal margin and OptiView technique was used to easily enter the abdomen. Pneumoperitoneum was achieved. Under direct vision, I then placed a 5 mm supraumbilical port. After injection local analgesia under direct vision, another left sided 5 mm port was placed followed by right sided 5 mm port. I inspected the abdomen. There was no injury upon entry. The dissection was performed with LigaSure, some sharp dissection and some blunt dissection. I divided the gastrocolic ligament. The right colon was mobilized. I also utilized the medial to lateral approach on the right colon. The ileocolic vessel was identified. Clips were placed and it was divided. Mesentery of the right colon was divided with LigaSure. A larger vessel was seen going to the right colon and clips were placed on this and it was divided as well. The omentum was divided to a location greater than 5 mm distal to the cancer. A portion of the mesentery to the terminal ileum was divided as well. Once this extended right colon was mobilized and the mesentery was divided, a 12 cm incision was made in the previous surgical incision on the upper abdomen. Dissection was carried down through the subcutaneous tissue and through the fascia. The fascia and peritoneum were opened longitudinally and a wound protector was placed. The specimen was brought out through the wound protector. A GI blue-load was fired across the terminal ileum as well as greater than 5 cm distal to the lesion on the transverse colon. The specimen was removed. A ogri-un-yecl anastomosis was then created between the terminal ileum and the transverse colon. This was done by creating an enterotomy and a colotomy and firing a 75 mm blue-load stapler. A comminatory was then closed in two layers with a running 3-0 PDS stitch and interrupted 3-0 silk Lembert stitches. Hemostasis was assured. Anastomosis was stuck back into the abdomen. Fascia was closed with running 0 PDS stitch. Subcutaneous and deep dermal 2-0 Vicryl stitches were used to approximate the wound and the skin of all incisions, including the port sites, were closed with arias. Appropriate dressings were applied. Patient tolerated the procedure well. There were no complications. KEENAN
[2019-04-22 10:47] VITALS: BP 128/94
[2019-04-22 14:30] VITALS: BP 128/82
--- NOTE | 2019-04-22 16:59 | Medical Nutrition Therapy ---
Nutrition Anthropometrics Height (Inches): 68.00 Height (Calculated Centimeters: 172.193117 Weight (Pounds): 217 Weight (Calculated Kilograms): 98.430 BMI: 33 Clifford Nutrition Score: Adequate Clifford Nutrition Risk Score: 18 Dietary Referral Nutrition Risk Factors: Nutrition Risk Comment: Physical Findings Physical Appearance: Obese BMI 30-39 Skin Appearance Skin Appearance: Edema Edema Location Modifier: Both Edema Location: Lower Extremity Type of Edema: Degree of Edema: 1+ Gastrointestinal Symptoms GI Symtoms: Tube Present: Bowel Sounds: Recent Bowel Pattern: Stool Characteristics: Nutritional Diagnosis Nutritional Risk Acuity 2: Head/Neck/GI Cancer (colon Ca) Nutritional Acuity: 2-Moderate Nutrition Diagnosis: Increased Nutrient Needs Nutrition Etiology: Physiological Causes Nutrition Problem/Etiology/Sym: AEB dx colon Ca with colectomy Adjusted Energy Requirement Re: 1950 (HB adj for obesity) Protein Requirement: 98 (1gm/kg) Fluid Requirement: 1950 (1ml/kcal) Diet Type: Medical Liquid/GI soft Nutrition Intervention: Incr diet as tolerated Nutrition Monitoring & Eval Nutrition Goals: Eat 75-100% Meal RD Patient Assessment Time: [address] Assessment Type: RD Assessment Patient Nutrition Acuity: 2-Moderate Follow Up Date: Apr 27, 2019 Nutritional Comment: 04/22 Pt admitted for hemicolectomy r/t dx colon Ca. Pt on med liquid/GI soft diet and eating 100%. Alb 3.9. Will cont to monitor and encourage intake. CHUNG RIDDLE April 22, 2019 16:59
[2019-04-22 19:02] VITALS: BP 189/89
[2019-04-23] VITALS: BP 159/91
[2019-04-23] MEDS: KETOROLAC 30 MG/ML VIAL IVP SCH (05:36)
[2019-04-23 07:19] VITALS: BP 164/99
[2019-04-23] MEDS: GABAPENTIN 300 MG CAP PO SCH ×2 (08:31→20:32)
[2019-04-23] MEDS: APAP/HYDROCODONE 325/7.5 TAB PO PRN ×3 (08:31→20:32)
[2019-04-23] MEDS: ENOXAPARIN 40 MG/0.4ML SYR SC SCH (08:31)
[2019-04-23 09:44] LABS: PLATELET COUNT, AUTOMATED 157 K/uL (150-450)
--- NOTE | 2019-04-23 10:05 | General Surgery Progress Note ---
Subjective Progress Notes Subjective pain controlled. sal po. Physical Exam Vital Signs Date Time Temp Pulse Resp B/P (MAP) Pulse Ox O2 Delivery O2 Flow Rate FiO2 04/23/19 07:19 98.5 76 24 164/99 (120) 94 Nasal Cannula 2.0 Intake and Output 04/23/19 07:00 Intake Total 4185 ml Balance 4185 ml Intake Oral 2860 ml IV Total 1325 ml # Voids 6 # Bowel Movements 6 General Appearance: No Acute Distress Cardiovascular: Other (reg rate) GI: Other (soft, some distention, inc c/d/i) Result Diagram: 04/23/19 0921 04/22/19 0545 Assessment and Plan Problems: (1) Colon cancer Assessment & Plan: 04/22/19: doing well. full liquid diet. ambulate. on lovenox for dvt proph. path pending. 04/23/19: doing well. liquid/soft diet. ambulate. home 1-2 days. Exam Sepsis Risk: No Definite Risk MARGUERITE OLIVAS April 23, 2019 10:04
[2019-04-23 11:23] VITALS: BP 125/83
[2019-04-23] MEDS: NS(*) 0.9% 1000 ML BAG 1,000 ML IV SCH (12:11)
--- NOTE | 2019-04-23 14:13 | RADIOLOGY IMAGING REPORT ---
FACILITY: [facility] - [place], [place] PATIENT NAME: Capo Marte : 1950 MR: [id number] V: [id number] EXAM DATE: [id number] ORDERING PHYSICIAN: MARGUERITE OLIVAS TECHNOLOGIST: Location: [facility] Patient: Capo Marte : 1950 Visit/Account:[id number] Date of Sevice: 04/23/2019 Exam type: KUB SINGLE VIEW ABDOMEN History: gastic pain Comparison: CT chest abdomen and pelvis March 27, 2019. Findings: The patient's right flank is not included on the examination. There are linear striations of gas pro jecting over the right mid abdomen. This may be extraluminal gas. [place] project over the upper ab domen. The remainder the bowel gas pattern appears nonspecific. There is a left hip arthroplasty in place. There are moderate spondylotic changes of the lumbar spine IMPRESSION: 1. There are linear striations of gas projecting over the right mid abdomen. This may be extralumin al gas. There are skin arias over the upper abdomen there for this may be postoperative in nature. The remainder the bowel gas pattern is nonspecific Report Dictated By: Amanda Powell MD at 04/23/2019 2:06 PM Report E-Signed By: Amanda Powell MD at 04/23/2019 2:09 PM WSN:[email or web address] LUISA
[2019-04-23 15:58] VITALS: BP 141/83
[2019-04-23 19:33] VITALS: BP 109/91
[2019-04-23] MEDS: DOCUSATE SODIUM 100 MG CAP PO SCH (20:32)
[2019-04-23 23:33] VITALS: BP 119/83
[2019-04-24] MEDS: APAP/HYDROCODONE 325/7.5 TAB PO PRN ×3 (00:39→20:35)
[2019-04-24] MEDS ORDERED: PROMETHAZINE 25 MG/ML 1 ML AMP IVP PRN (00:45)
[2019-04-24] MEDS: PANTOPRAZOLE SOD 40 MG IV VIAL IVP SCH ×2 (01:00→14:05)
[2019-04-24] MEDS: ONDANSETRON 4 MG/2 ML VIAL IVP PRN (01:07)
[2019-04-24 06:35] LABS: PLATELET COUNT, AUTOMATED 155 K/uL (150-450)
[2019-04-24 07:16] VITALS: BP 131/75
--- NOTE | 2019-04-24 08:39 | General Surgery Progress Note ---
Subjective Progress Notes Subjective doing fine now. minimal pain. dark diarrhea. bloody vomit last night. Physical Exam Vital Signs Date Time Temp Pulse Resp B/P (MAP) Pulse Ox O2 Delivery O2 Flow Rate FiO2 04/24/19 07:16 98.9 82 14 131/75 (93) 98 Nasal Cannula 1.0 Intake and Output 04/24/19 07:00 Intake Total 740 ml Balance 740 ml Intake Oral 740 ml # Voids 7 # Bowel Movements 4 # Emeses 1 General Appearance: No Acute Distress Cardiovascular: Other (reg rate) GI: Other (abd soft) Result Diagram: 04/24/19 0540 04/23/19 0921 Assessment and Plan Problems: (1) Colon cancer Assessment & Plan: 04/22/19: doing well. full liquid diet. ambulate. on lovenox for dvt proph. path pending. 04/23/19: doing well. liquid/soft diet. ambulate. home 1-2 days. 04/24/19: bloody vomit last night. egd today. npo for procedure. Exam Sepsis Risk: No Definite Risk MARGUERITE OLIVAS April 24, 2019 08:39
[2019-04-24] MEDS ORDERED: PROPOFOL EMUL(*) 10MG/ML 20 ML 40 ML ONE (08:49)
[2019-04-24] MEDS: DOCUSATE SODIUM 100 MG CAP PO SCH ×2 (09:20→20:35)
--- NOTE | 2019-04-24 09:20 | NUR ---
04/24/18 0900 Lovenox not given per orders to hold medication prior to procedure.
[2019-04-24] MEDS: ENOXAPARIN 40 MG/0.4ML SYR SC SCH (09:21)
[2019-04-24] MEDS: GABAPENTIN 300 MG CAP PO SCH ×2 (09:21→20:25)
[2019-04-24 10:37] VITALS: BP 133/88
[2019-04-24] MEDS ORDERED: NORMOSOL R SOLN(*) 1000 ML BAG 1,000 ML IV ONE (11:00)
[2019-04-24] MEDS ORDERED: PANTOPRAZOLE SOD 40 MG IV VIAL IVP SCH (13:00)
[2019-04-24 13:50] VITALS: BP 168/84
[2019-04-24] MEDS ORDERED: PANTOPRAZOLE SOD(*)40 MG VIAL 80 MG in NS(*) 0.9% 100 ML BAG 100 ML IVPB ONE (16:00)
[2019-04-24] MEDS: PANTOPRAZOLE SOD(*)40 MG VIAL 80 MG in NS(*) 0.9% 100 ML BAG 100 ML IV SCH (16:28)
[2019-04-24] MEDS: SUCRALFATE 1 GM TAB PO SCH ×2 (16:29→20:25)
--- NOTE | 2019-04-24 16:32 | OPERATIVE REPORT 1 ---
EVENT DATE: April 24, 2019 SURGEON: Capo Coker MD ANESTHESIOLOGIST: Oscar Curiel MD ANESTHESIA: MAC. WHEEL FITTER: None. PREOPERATIVE DIAGNOSIS Upper gastrointestinal bleed. POSTOPERATIVE DIAGNOSIS Upper gastrointestinal bleed. PROCEDURE PERFORMED Esophagogastroduodenoscopy. FLUIDS IV crystalloid. ESTIMATED BLOOD LOSS Minimal. SPECIMENS None. COMPLICATIONS None. INDICATIONS This is a 68-year-old male status post partial colon resection who vomited blood last night. He was stable. His abdomen was soft. Risks and benefits of the procedure were explained, and consent was signed. DESCRIPTION OF PROCEDURE Patient was taken to the GI suite and placed in the supine position. MAC anesthesia was administered per anesthesia team. Patient was placed in the left lateral position. A bite block was placed. Gastroscope was advanced through the oropharynx, down the esophagus, and into the stomach. There was some old blood in the stomach. This was washed out. The stomach was well visualized, and no ulcers were seen in the stomach. There was some moderate irritation at the level of the GE junction, but no bleeding lesions. In the duodenal bulb, there were two large ulcers. One was cratered and was approximately a centimeter and was not bleeding and had no clot. The more proximal one had a clot on it. It was not actively bleeding, and this was just over a centimeter in size. Because it was not actively bleeding, I elected to leave the clot on the lesion, and we will start Protonix and discontinue the Lovenox. Gastroscope was withdrawn. Patient tolerated the procedure well. There were no complications. MTDD
[2019-04-24 20:26] VITALS: BP 138/70
[2019-04-25] MEDS: PANTOPRAZOLE SOD(*)40 MG VIAL 80 MG in NS(*) 0.9% 100 ML BAG 100 ML IV SCH ×2 (01:13→12:15)
[2019-04-25] MEDS: PANTOPRAZOLE SOD 40 MG IV VIAL IVP SCH (01:17)
[2019-04-25] MEDS: APAP/HYDROCODONE 325/7.5 TAB PO PRN ×5 (01:17→19:42)
[2019-04-25 02:42] VITALS: BP 144/85
[2019-04-25] MEDS: SUCRALFATE 1 GM TAB PO SCH ×4 (05:47→21:00)
[2019-04-25 06:24] LABS: PLATELET COUNT, AUTOMATED 168 K/uL (150-450)
[2019-04-25 06:50] VITALS: BP 112/73
[2019-04-25] MEDS: DOCUSATE SODIUM 100 MG CAP PO SCH ×2 (09:00→21:00)
--- NOTE | 2019-04-25 09:39 | General Surgery Progress Note ---
Subjective Progress Notes Subjective Tolerating clears without issue. Continues to have melenotic stool. No further nausea/emesis. Pain is stable from yesterday, worse with movement. Patient Complains of: Gastrointestinal: Bowel Movement; No Nausea, No Vomiting Physical Exam Vital Signs Date Time Temp Pulse Resp B/P (MAP) Pulse Ox O2 Delivery O2 Flow Rate FiO2 04/25/19 06:50 99.8 82 16 112/73 (86) 96 Room Air 04/25/19 02:42 1.0 Intake and Output 04/25/19 07:00 Intake Total 2574 ml Output Total 275 ml Balance 2299 ml Intake Oral 360 ml IV Total 2214 ml Output Urine Total 275 ml # Voids 4 # Bowel Movements 2 General Appearance: Alert, Awake, No Acute Distress Neuro: No Gross deficits ENT: Moist Mucous Membranes Cardiovascular: Regular Rate and Rhythm Respiratory: No Respiratory Distress GI: Other (obese, somewhat distended; ecchymosis around incisions, no erythema or drainage, arias intact; fantasma incisional tenderness without rebound/guarding) Extremities: Warm, Perfused Result Diagram: 04/25/19 0541 04/25/19 0541 Assessment and Plan Problems: (1) Colon cancer Assessment & Plan: 04/22/19: doing well. full liquid diet. ambulate. on lovenox for dvt proph. path pending. 04/23/19: doing well. liquid/soft diet. ambulate. home 1-2 days. 04/24/19: bloody vomit last night. egd today. npo for procedure. 04/25/19: having bowel function, melenotic. No further bloody emesis, abdominal pain stable. Hgb decreased from yesterday, will recheck in PM. Continue clears for now. (2) Upper GI bleed Assessment & Plan: 04/24/19: EGD done, two ulcers in duodenum identified, one with stigmata of recent bleeding. Placed on PPI gtt. 04/25/19: hgb decreased to 10 (12), HDS. Discussed with patient that we will check PM CBC, but that if hgb continues to decline, may need transfer to tertiary care center for interventional endoscopy. Time Spent: > 30 min Exam Sepsis Risk: No Definite Risk ENRIQUE STRONG MD Apr 25, 2019 09:39
[2019-04-25] MEDS: GABAPENTIN 300 MG CAP PO SCH ×2 (09:42→21:00)
[2019-04-25] MEDS: ONDANSETRON 4 MG/2 ML VIAL IVP PRN (16:17)
[2019-04-25 19:29] VITALS: BP 151/97
[2019-04-25] MEDS: NS(*) 0.9% 1000 ML BAG 1,000 ML IV SCH (19:42)
[2019-04-26] MEDS: PANTOPRAZOLE SOD(*)40 MG VIAL 80 MG in NS(*) 0.9% 100 ML BAG 100 ML IV SCH
[2019-04-26 02:25] VITALS: BP 124/79
[2019-04-26] MEDS: APAP/HYDROCODONE 325/7.5 TAB PO PRN ×5 (02:26→20:38)
[2019-04-26 05:34] LABS: PLATELET COUNT, AUTOMATED 160 K/uL (150-450)
[2019-04-26] MEDS: SUCRALFATE 1 GM TAB PO SCH ×4 (06:17→20:37)
[2019-04-26 07:08] VITALS: BP 117/75
[2019-04-26] MEDS: DOCUSATE SODIUM 100 MG CAP PO SCH ×2 (09:00→20:38)
[2019-04-26] MEDS: GABAPENTIN 300 MG CAP PO SCH ×2 (10:00→20:37)
--- NOTE | 2019-04-26 10:16 | General Surgery Progress Note ---
Subjective Progress Notes Subjective Pain improved today. Wants to eat more. Passing gas and having BMs. No further hematemesis, BMs melenotic. Patient Complains of: Gastrointestinal: Flatus, Bowel Movement; No Nausea, No Vomiting Physical Exam Vital Signs Date Time Temp Pulse Resp B/P (MAP) Pulse Ox O2 Delivery O2 Flow Rate FiO2 04/26/19 07:08 98.7 80 16 117/75 (89) 92 Nasal Cannula 1.0 Intake and Output 04/26/19 07:00 Intake Total 3290 ml Balance 3290 ml Intake Oral 1520 ml IV Total 1770 ml # Voids 6 # Bowel Movements 6 General Appearance: Alert, Awake, No Acute Distress Neuro: No Gross deficits ENT: Moist Mucous Membranes Cardiovascular: Regular Rate and Rhythm Respiratory: No Respiratory Distress GI: Other (obese, somewhat distended, no rebound/guarding, incisions tender; ec chymosis at incision sites, no erythema, arias intact) Extremities: Soft and Non Tender, Warm, Perfused Integumentary: Skin Intact without Lesion / Mass Psych: Alert & Oriented X3, Appropriate Mood & Affect Result Diagram: 04/26/1952104/26/19521 Monitor Interpretation: Normal Sinus Rhythm Assessment and Plan Problems: (1) Colon cancer Assessment & Plan: 04/22/19: doing well. full liquid diet. ambulate. on lovenox for dvt proph. path pending. 04/23/19: doing well. liquid/soft diet. ambulate. home 1-2 days. 04/24/19: bloody vomit last night. egd today. npo for procedure. 04/25/19: having bowel function, melenotic. No further bloody emesis, abdominal pain stable. Hgb decreased from yesterday, will recheck in PM. Continue clears for now. 04/26/19: hgb stable yesterday PM, slight decrease this AM, HDS. Will advance diet to GI surgical, dc PPI gtt and transition to oral PPI BID. Check AM hgb. Continue ambulation. (2) Upper GI bleed Assessment & Plan: 04/24/19: EGD done, two ulcers in duodenum identified, one with stigmata of recent bleeding. Placed on PPI gtt. 04/25/19: hgb decreased to 10 (12), HDS. Discussed with patient that we will check PM CBC, but that if hgb continues to decline, may need transfer to tertiary care center for interventional endoscopy. 04/26/19: hgb stabilized, transition to oral PPI, check AM hgb. Time Spent: < 30 min Exam Sepsis Risk: No Definite Risk ENRIQUE STRONG MD Apr 26, 2019 10:16
[2019-04-26] MEDS: PANTOPRAZOLE SOD 40 MG TABEC PO SCH ×2 (11:16→20:37)
[2019-04-26 15:15] VITALS: BP 152/98
[2019-04-26 19:52] VITALS: BP 140/78
[2019-04-26 23:18] VITALS: BP 119/81
[2019-04-27] VITALS (9 sets, daily range): BP systolic 114–169; BP diastolic 77–95
[2019-04-27] MEDS: APAP/HYDROCODONE 325/7.5 TAB PO PRN ×5 (00:44→20:59)
[2019-04-27] MEDS: SUCRALFATE 1 GM TAB PO SCH ×4 (05:47→20:58)
[2019-04-27 06:06] LABS: PLATELET COUNT, AUTOMATED 176 K/uL (150-450)
[2019-04-27] MEDS ORDERED: FUROSEMIDE 20 MG/2 ML VIAL IVP ONE ×2 (08:05→13:15)
--- NOTE | 2019-04-27 08:11 | General Surgery Progress Note ---
Subjective Progress Notes Subjective No complaints today. Not much pain. Tolerating diet. Still with multiple stools/day. Have been black but he reports they're becoming more brown. Physical Exam Vital Signs Date Time Temp Pulse Resp B/P (MAP) Pulse Ox O2 Delivery O2 Flow Rate FiO2 04/27/19 05:45 95 16 114/80 (91) 90 Room Air 04/26/19 23:18 98.5 1.0 Intake and Output 04/27/19 07:00 Intake Total 2834 ml Balance 2834 ml Intake Oral 2634 ml IV Total 200 ml # Voids 2 # Bowel Movements 3 General Appearance: Alert, Awake, No Acute Distress, Afebrile GI: Other (Soft appropriate postop TTP, incisions all look good without erythema or drainage.) Extremities: Warm, Perfused Result Diagram: 04/27/19 0553 04/26/19 0522 Monitor Interpretation: Normal Sinus Rhythm Assessment and Plan Problems: (1) Colon cancer Assessment & Plan: 04/22/19: doing well. full liquid diet. ambulate. on lovenox for dvt proph. path pending. 04/23/19: doing well. liquid/soft diet. ambulate. home 1-2 days. 04/24/19: bloody vomit last night. egd today. npo for procedure. 04/25/19: having bowel function, melenotic. No further bloody emesis, abdominal pain stable. Hgb decreased from yesterday, will recheck in PM. Continue clears for now. 04/26/19: hgb stable yesterday PM, slight decrease this AM, HDS. Will advance diet to GI surgical, dc PPI gtt and transition to oral PPI BID. Check AM hgb. Continue ambulation. 04/27/19: H/H down, will transfuse 2U pRBC today and follow H/H. I don't think he's continuing to bleed as stools becoming more normal and BUN coming coming down and is low. Will follow closely, may need rescope if he shows increasing signs of bleeding. Doing well from colectomy standpoint. Start regular diet. Continue PPI and carafate. Check H. pylori. Ambulate, IS. No NSAIDS or blood thinners due to bleeding DU. (2) Upper GI bleed Assessment & Plan: 04/24/19: EGD done, two ulcers in duodenum identified, one with stigmata of recent bleeding. Placed on PPI gtt. 04/25/19: hgb decreased to 10 (12), HDS. Discussed with patient that we will check PM CBC, but that if hgb continues to decline, may need transfer to tertiary care center for interventional endoscopy. 04/26/19: hgb stabilized, transition to oral PPI, check AM hgb. 04/27/19: H/H down a little overnight but BNP decreasing and BMs becoming more normal. Continue PPI bid and carafate. Will check H. pylori. Transfuse 2U pRBC today and follow H/H after transfusion. (3) Anemia Status: Acute Assessment & Plan: Due to bleeding duodenal ulcers Condition Stable. Time Spent: < 30 min Exam Sepsis Risk: No Definite Risk Problem Qualifiers (1) Colon cancer: Colon location: transverse Qualified Codes: C18.4 - Malignant neoplasm of transverse colon (2) Anemia: Anemia type: other cause Other causes of anemia: acute posthemorrhagic Qualified Codes: D62 - Acute posthemorrhagic anemia BARRY KENNY MD Apr 27, 2019 08:11
[2019-04-27] MEDS: PANTOPRAZOLE SOD 40 MG TABEC PO SCH ×2 (09:35→20:58)
[2019-04-27] MEDS: GABAPENTIN 300 MG CAP PO SCH ×2 (09:35→20:58)
[2019-04-27] MEDS: DOCUSATE SODIUM 100 MG CAP PO SCH ×2 (09:36→20:59)
[2019-04-27] MEDS ORDERED: NS(*) 0.9% 500 ML BAG 500 ML ONE (10:12)
--- NOTE | 2019-04-27 13:49 | Medical Nutrition Therapy ---
Nutrition Anthropometrics Height (Inches): 68.00 Height (Calculated Centimeters: 172.331860 Weight (Pounds): 217 Weight (Calculated Kilograms): 98.430 BMI: 33 Clifford Nutrition Score: Adequate Clifford Nutrition Risk Score: 20 Dietary Referral Nutrition Risk Factors: Nutrition Risk Comment: Physical Findings Physical Appearance: Obese BMI 30-39 Skin Appearance Skin Appearance: Edema Edema Location Modifier: Both Edema Location: Lower Extremity Type of Edema: Degree of Edema: 1+ Gastrointestinal Symptoms GI Symtoms: Blood in Stool, Diarrhea, Change in Bowel Pattern Tube Present: Some bloating/gas Bowel Sounds: Recent Bowel Pattern: Stool Characteristics: Nutrition/Food History Fair Skipped Meals: Yes Nutritional Diagnosis Nutritional Risk Acuity 2: Head/Neck/GI Cancer (colon Ca) Nutritional Acuity: 2-Moderate Nutrition Diagnosis: Increased Nutrient Needs Nutrition Etiology: Physiological Causes Nutrition Problem/Etiology/Sym: AEB dx colon Ca with colectomy Adjusted Energy Requirement Re: 1950 (HB adj for obesity) Protein Requirement: 98 (1gm/kg) Fluid Requirement: 1950 (1ml/kcal) Diet Type: Medical Liquid/GI soft Nutrition Intervention: Incr diet as tolerated Nutrition Monitoring & Eval Nutrition Goals: Eat 75-100% Meal Nutrition Follow-Up: Good Intake Nutrition Monitoring: Monitor tolerance to diet, changes in colostomy output, GI bleed. RD Patient Assessment Time: [address] Assessment Type: RD Re-Assessment Patient Nutrition Acuity: 2-Moderate Follow Up Date: May 01, 2019 Nutritional Comment: 04/27/19-Discussed with pt medical nutrition therapy for colostomy. Pt on Smith/Soft diet. Discussed easy to digest high protein foods. Discussed limiting gas producing high fiber foods. Discussed drinking electrolyte beverage if output is high, also talked about ways to thicken stool consistency. Will continue to monitor pt tolerance to diet, stool changes, GI bleed status.PRAKASH QUINTERO Apr 27, 2019 13:49
--- NOTE | 2019-04-27 17:48 | Miscellaneous Provider Note ---
Miscellaneous Provider Note Note Called in to see patient due to serous drainage from epigastric chevron incision. I removed arias and a couple of subcutaneous sutures and palpated fascia but I didn't feel any fascial defect. I packed the wound with dry gauze and covered it with dry 4x4 gauze, an ABD pad, and taped this in to place. Pt tolerated this without problems. BARRY KENNY MD Apr 27, 2019 17:48
[2019-04-28 03:42] VITALS: BP 131/78
[2019-04-28] MEDS: APAP/HYDROCODONE 325/7.5 TAB PO PRN ×5 (03:46→20:03)
[2019-04-28] MEDS: SUCRALFATE 1 GM TAB PO SCH ×4 (06:00→21:12)
[2019-04-28 06:20] LABS: PLATELET COUNT, AUTOMATED 216 K/uL (150-450)
[2019-04-28 07:40] VITALS: BP 131/98
[2019-04-28] MEDS: GABAPENTIN 300 MG CAP PO SCH ×2 (08:13→21:12)
[2019-04-28] MEDS: PANTOPRAZOLE SOD 40 MG TABEC PO SCH ×2 (08:13→21:12)
[2019-04-28] MEDS: DOCUSATE SODIUM 100 MG CAP PO SCH ×2 (08:13→21:00)
[2019-04-28] MEDS: KCL (*) 20 MEQ/100 ML PREMIX 100 ML IV SCH ×2 (08:13→11:25)
[2019-04-28] MEDS ORDERED: NS(*) 0.9% 250 ML BAG 250 ML ONE (08:49)
--- NOTE | 2019-04-28 10:23 | General Surgery Progress Note ---
Subjective Progress Notes Subjective some abd pain. sal po. Physical Exam Vital Signs Date Time Temp Pulse Resp B/P (MAP) Pulse Ox O2 Delivery O2 Flow Rate FiO2 04/28/19 07:40 99.0 78 20 131/98 (109) 95 Nasal Cannula 1.0 Intake and Output 04/28/19 07:00 Intake Total 2530 ml Balance 2530 ml Intake Oral 2030 ml Blood Product 500 ml # Voids 2 General Appearance: No Acute Distress Cardiovascular: Other GI: Other (abd soft) Result Diagram: 04/28/19 0552 04/28/19 0552 Monitor Interpretation: Normal Sinus Rhythm Assessment and Plan Problems: (1) Colon cancer Assessment & Plan: 04/22/19: doing well. full liquid diet. ambulate. on lovenox for dvt proph. path pending. 04/23/19: doing well. liquid/soft diet. ambulate. home 1-2 days. 04/24/19: bloody vomit last night. egd today. npo for procedure. 04/25/19: having bowel function, melenotic. No further bloody emesis, abdominal pain stable. Hgb decreased from yesterday, will recheck in PM. Continue clears for now. 04/26/19: hgb stable yesterday PM, slight decrease this AM, HDS. Will advance diet to GI surgical, dc PPI gtt and transition to oral PPI BID. Check AM hgb. Continue ambulation. 04/27/19: H/H down, will transfuse 2U pRBC today and follow H/H. I don't think he's continuing to bleed as stools becoming more normal and BUN coming coming down and is low. Will follow closely, may need rescope if he shows increasing signs of bleeding. Doing well from colectomy standpoint. Start regular diet. Continue PPI and carafate. Check H. pylori. Ambulate, IS. No NSAIDS or blood thinners due to bleeding DU. 04/28/19: doing well. diet as sal. home soon. replace potassium. (2) Upper GI bleed Assessment & Plan: 04/24/19: EGD done, two ulcers in duodenum identified, one with stigmata of recent bleeding. Placed on PPI gtt. 04/25/19: hgb decreased to 10 (12), HDS. Discussed with patient that we will check PM CBC, but that if hgb continues to decline, may need transfer to tertiary care center for interventional endoscopy. 04/26/19: hgb stabilized, transition to oral PPI, check AM hgb. 04/27/19: H/H down a little overnight but BNP decreasing and BMs becoming more normal. Continue PPI bid and carafate. Will check H. pylori. Transfuse 2U pRBC today and follow H/H after transfusion. 04/28/19: hb 9.8. hold anticoag. cont protonix. diet as sal. 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
[2019-04-28 10:42] VITALS: BP 161/87
[2019-04-28] MEDS ORDERED: NS(*) 0.9% 500 ML BAG 500 ML IV PRN (13:05)
[2019-04-28 15:03] VITALS: BP 159/83
[2019-04-28 18:57] VITALS: BP 156/91
[2019-04-29 00:01] VITALS: BP 169/91
[2019-04-29] MEDS: APAP/HYDROCODONE 325/7.5 TAB PO PRN ×3 (00:02→10:03)
[2019-04-29] MEDS: SUCRALFATE 1 GM TAB PO SCH ×2 (05:27→11:08)
[2019-04-29 05:30] VITALS: BP 156/75
[2019-04-29 07:28] VITALS: BP 116/80
[2019-04-29] MEDS: PANTOPRAZOLE SOD 40 MG TABEC PO SCH (08:18)
[2019-04-29] MEDS: DOCUSATE SODIUM 100 MG CAP PO SCH (08:18)
[2019-04-29] MEDS: GABAPENTIN 300 MG CAP PO SCH (08:18)
[2019-04-29 08:38] LABS: PLATELET COUNT, AUTOMATED 278 K/uL (150-450)
[2019-04-29] MEDS ORDERED: TRAM-420 PO (13:59)
[2019-04-29] MEDS ORDERED: PANT40TA65 PO (14:00)
--- NOTE | 2019-04-29 14:02 | Hospitalist Depart ---
Discharge Summary Reason for Hosp/Final Diag: (1) Colon cancer Hospital Course & Plan: 04/22/19: doing well. full liquid diet. ambulate. on l ovenox for dvt proph. path pending. 04/23/19: doing well. liquid/soft diet. ambulate. home 1-2 days. 04/24/19: bloody vomit last night. egd today. npo for procedure. 04/25/19: having bowel function, melenotic. No further bloody emesis, abdominal pain stable. Hgb decreased from yesterday, will recheck in PM. Continue clears for now. 04/26/19: hgb stable yesterday PM, slight decrease this AM, HDS. Will advance diet to GI surgical, dc PPI gtt and transition to oral PPI BID. Check AM hgb. Continue ambulation. 04/27/19: H/H down, will transfuse 2U pRBC today and follow H/H. I don't think he's continuing to bleed as stools becoming more normal and BUN coming coming down and is low. Will follow closely, may need rescope if he shows increasing signs of bleeding. Doing well from colectomy standpoint. Start regular diet. Continue PPI and carafate. Check H. pylori. Ambulate, IS. No NSAIDS or blood thinners due to bleeding DU. 04/28/19: doing well. diet as sal. home soon. replace potassium. 04/29/19: doing well. sal po. +bms -normal appearing. wound clean. d/c home, wound care, cont protonix, f/u me 1 wk. (2) Upper GI bleed Hospital Course & Plan: 04/24/19: EGD done, two ulcers in duodenum identified, one with stigmata of recent bleeding. Placed on PPI gtt. 04/25/19: hgb decreased to 10 (12), HDS. Discussed with patient that we will check PM CBC, but that if hgb continues to decline, may need transfer to tertiary care center for interventional endoscopy. 04/26/19: hgb stabilized, transition to oral PPI, check AM hgb. 04/27/19: H/H down a little overnight but BNP decreasing and BMs becoming more normal. Continue PPI bid and carafate. Will check H. pylori. Transfuse 2U pRBC today and follow H/H after transfusion. 04/28/19: hb 9.8. hold anticoag. cont protonix. diet as sal. (3) Anemia Status: Acute Hospital Course & Plan: Due to bleeding duodenal ulcers Departure Weight (Pounds): 217 Weight (Ounces): 6.0 Result Diagram: 04/29/1931 04/29/19830 Condition: Improved Discharge: Home Home Health RN Follow Up For: Nursing Assessment Discharge Instructions Home Meds Active Scripts Pantoprazole Sodium (PANTOPRAZOLE SODIUM) 40 Mg Tablet.dr, 1 TAB PO BID, #60 CAP 2 Refills Prov:MARGUERITE ANG 04/29/19 Tramadol Hcl (TRAMADOL HCL) 50 Mg Tablet, 50 MG PO Q6H PRN for PAIN, #30 TAB Prov:MARGUERITE ANG 04/29/19 Reported Medications Losartan Potassium (LOSARTAN POTASSIUM) 50 Mg Tablet, 50 MG PO QDAY 03/23/19 Metformin Hcl (METFORMIN HCL) 500 Mg Tablet, 1 TAB PO QDAY, TAB 03/23/19 Diet: Regular Activity: No Heavy Lifting Special Instructions: no lifing more than 15 lbs for 6 wks. wound care as instructed. f/u dr. hilary ang 1 wk ([phone]). 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
== END 2019-04-29 15:03 | disposition home or self-care (01) | DRG 329 ==
LOC: OR 01:27 → MED 16:30
PROVIDERS: ADMIT Surgery; ATTEND Surgery
PROC: 0DTF0ZZ Resection of Right Large Intestine, Open Approach (ICD-10-PCS; principal; 2019-04-21 12:03)
PROC: 0DJ08ZZ Inspection of Upper Intestinal Tract, Via Natural or Artificial Opening Endoscopic (ICD-10-PCS; 2019-04-24)
PROC: 30233N1 Transfusion of Nonautologous Red Blood Cells into Peripheral Vein, Percutaneous Approach (ICD-10-PCS; 2019-04-27)
DX: C18.4 Malignant neoplasm of transverse colon (principal); K26.4 Chronic or unspecified duodenal ulcer with hemorrhage; Z94.4 Liver transplant status; K92.1 Melena; D62 Acute posthemorrhagic anemia; I10 Essential (primary) hypertension; Z96.642 Presence of left artificial hip joint; Z87.891 Personal history of nicotine dependence; Z85.828 Personal history of other malignant neoplasm of skin; Z86.19 Personal history of other infectious and parasitic diseases
CPT/HCPCS: 36415; 36416; 36430; 74018; 82040; 82247; 82248; 82310; 82374; 82435; 82565; 82947; 82948; 84075; 84132; 84155; 84295; 84450; 84460; 84520; 85014; 85018; 85025; 85027; 86677; 86850; 86900; 86901; 86920; 88309; 88342; C9113; J1100; J1170; J1650; J1885; J1940; J1956; J2001; J2405; J2550; J2704; J3010; J3480; J3490; J7030; J7050; P9016

== ENCOUNTER 2019-06-19 00:52 | Observation (INO) | payer MEDICARE ==
[~2019-06-19] VITALS: Ht 172.7 cm; Wt 99.3 kg
[2019-06-19] VITALS (12 sets, daily range): BP systolic 111–158; BP diastolic 74–141
[~2019-06-19 00:52] MED LIST changes: +PANT40TA65 PO; +TRAM-420 PO
[2019-06-19] MEDS ORDERED: NORMOSOL R SOLN(*) 1000 ML BAG 1,000 ML IV PRN (08:05)
[2019-06-19] MEDS ORDERED: LIDOCAINE/SOD BICARB 8.4% SYR ID ONE (08:05)
[2019-06-19] MEDS ORDERED: GLYCOPYRROLATE 0.2MG/ML 1 ML INJ IVP ONE (08:55)
[2019-06-19] MEDS ORDERED: MIDAZOLAM 2 MG/2 ML VIAL ONE (09:48)
[2019-06-19] MEDS ORDERED: KETAMINE HCL 500 MG/10 ML VIAL ONE (09:49)
--- NOTE | 2019-06-19 16:27 | EKG ---
FACILITY: [facility] PATIENT NAME: GENARO FAN : [id number] MR: [id number] V: [id number] EXAM DATE: ORDERING PHYSICIAN: ROXY LANG TECHNOLOGIST: YVES Shah Reason : questionable rhythm on monitor Blood Pressure : / mmHG Vent. Rate : 091 BPM Atrial Rate : 091 BPM P-R Int : 240 ms QRS Dur : 130 ms QT Int : 406 ms P-R-T Axes : 048 025 244 degrees QTc Int : 499 ms Sinus rhythm with 1st degree AV block with occasional premature joseph complexes. Nonspecific intraventricular block Cannot rule out Anterior infarct , age undetermined T wave abnormality, consider inferolateral ischemia When compared with ECG of 19-FEB-2019 12:50, No significant changes are seen. Confirmed by JORGE BROWNING ([id number] on 06/19/2019 8:12:13 PM Referred By: Confirmed By:JORGE BROWNING
[2019-06-20 03:59] VITALS: BP 113/74
[2019-06-20 07:43] VITALS: BP 136/95
[2019-06-20] MEDS ORDERED: metFORMIN HCL 500 MG TAB PO SCH (09:00)
[2019-06-20] MEDS ORDERED: LOSARTAN POTASSIUM 50 MG TAB PO SCH (09:00)
--- NOTE | 2019-06-20 09:05 | Short(Outpt) Discharge Summary ---
Discharge Summary Reason for Hosp/Final Diag: (1) Upper GI bleed Hospital Course & Plan: pt presented for egd. ulcers have healed well. d/c home. path pending. Departure Discharge to: Home Discharge Instructions Home Meds Reported Medications Losartan Potassium (LOSARTAN POTASSIUM) 50 Mg Tablet, 50 MG PO QDAY 03/23/19 Metformin Hcl (METFORMIN HCL) 500 Mg Tablet, 1 TAB PO QDAY, TAB 03/23/19 Discontinued Scripts Pantoprazole Sodium (PANTOPRAZOLE SODIUM) 40 Mg Tablet.dr, 1 TAB PO BID, #60 CAP 2 Refills Prov:MARGUERITE OLIVAS 04/29/19 Tramadol Hcl (TRAMADOL HCL) 50 Mg Tablet, 50 MG PO Q6H PRN for PAIN, #30 TAB Prov:MARGUERITE OLVIAS 04/29/19 Diet: Regular Activity: As Tolerated Special Instructions: we will call you in 10 days with results. MARGUERITE OLIVAS Jun 20, 2019 09:05
== END 2019-06-20 09:03 | disposition home or self-care (01) ==
LOC: OR 00:52 → MED 11:30 → INTOOBSV 11:30 → MED 21:33
PROVIDERS: ADMIT Surgery; ATTEND Surgery
DX: K26.9 Duodenal ulcer, unspecified as acute or chronic, without hemorrhage or perforation (principal); K29.70 Gastritis, unspecified, without bleeding; K44.9 Diaphragmatic hernia without obstruction or gangrene; K29.80 Duodenitis without bleeding; I44.0 Atrioventricular block, first degree
CPT/HCPCS: 36416; 43239; 82948; 87077; 88305; 88342; 93005; A9270; G0378; J2250; J3490